=== PATIENT | male | born 1965 | race Caucasian/White ===

== ENCOUNTER 2025-05-21 23:08 | Emergency (ER) | payer OTHER ==
[~2025-05-21] VITALS: Ht 175.3 cm; Wt 110.0 kg
[2025-05-21] MEDS ORDERED: DIPHTH,PERTUSS(ACELL),TET VAC 0.5 ML SYRINGE IM ONE (23:45)
[2025-05-22] MEDS ORDERED: LIDOCAINE/RACEPINEP/TETRACAINE 3 ML SYR TOP ONE (01:15)
[2025-05-22 02:10] VITALS: BP 127/77
== END 2025-05-22 02:10 | disposition other institution, planned readmission (95) ==
LOC: ED 23:08
DX: S51.012A Laceration without foreign body of left elbow, initial encounter (principal); W18.30XA Fall on same level, unspecified, initial encounter; I50.9 Heart failure, unspecified; E11.9 Type 2 diabetes mellitus without complications; K21.9 Gastro-esophageal reflux disease without esophagitis
CPT/HCPCS: 12001; 73080; 99283